=== PATIENT | female | born 1970 | race Caucasian/White ===

== ENCOUNTER 2018-08-15 05:36 | Day surgery (SDC) | payer OTHER ==
[2018-08-15] MEDS ORDERED: PROPOFOL 10 MG/ML VIAL IV ONE (05:37)
[2018-08-15] MEDS ORDERED: MIDAZOLAM HCL 2MG/2ML VIAL IV ONE (05:37)
[2018-08-15] MEDS ORDERED: DESFLURANE 240 ML BTL INH ONE (05:37)
[2018-08-15] MEDS ORDERED: LIDOCAINE 2% MDV (20MG/ML) 20ML VIAL IV ONE (05:37)
[2018-08-15] MEDS ORDERED: DEXAMETHASONE 4 MG/ML 1ML VIAL IVP ONE (05:37)
[2018-08-15] MEDS ORDERED: ONDANSETRON HCL IV 4 MG/2 ML VIAL IVP ONE (05:37)
[2018-08-15] MEDS ORDERED: FENTANYL PF 100MCG/2ML VIAL IV ONE (05:37)
[2018-08-15] MEDS ORDERED: CEFAZOLIN 2 Gram 2 GM/50 ML BAG IVPB ONE (05:37)
[2018-08-15] MEDS ORDERED: ACETAMINOPHEN 1,000 MG/100 ML BTL IV ONE (06:00)
[2018-08-15 06:12] LABS: HEMATOCRIT 44.1 % (35.0-47.0); HEMOGLOBIN 14.2 gm/dl (11.6-16.0)
[2018-08-15 06:13] LABS: URINE APPEARANCE SL CLOUDY; URINE BILIRUBIN NEGATIVE (NEGATIVE); URINE BLOOD NEGATIVE (NEGATIVE); URINE COLOR YELLOW; URINE GLUCOSE (UA) NEGATIVE (NEGATIVE); URINE KETONE NEGATIVE (NEGATIVE); URINE LEUKOCYTE ESTERASE NEGATIVE (NEGATIVE); URINE NITRITE NEGATIVE (NEGATIVE); URINE PROTEIN NEGATIVE (NEGATIVE); URINE UROBILINOGEN 0.2 E.U./dL (0.20 - 1.00)
[2018-08-15 06:25] LABS: BLOOD UREA NITROGEN 23 mg/dL (6-20); CREATININE 0.8 mg/dL (0.5-0.9); EST GLOMERULAR FILTRATION RATE > 60 mL/min; GLUCOSE,RANDOM 140 mg/dL (74-109)
--- NOTE | 2018-08-20 11:00 | Operative Note ---
DATE OF SURGERY: 08/15/2018 PREOPERATIVE DIAGNOSIS: Urgency, frequency, stress incontinence. POSTOPERATIVE DIAGNOSIS: Urgency, frequency, stress incontinence. OPERATION: Cystoscopy. PROCEDURE: General anesthesia. Lithotomy position. The patient was prepped and draped in sterile fashion. Cystoscopy was performed. The patient was noted to have a very mild grade 1 cystocele. Pérez endoscopy revealed no evidence of any foreign body, bladder stone/calculi, or infection. At the end of the procedure, bladder was drained. Pelvic examination was negative. Digital rectal examination revealed grade 1 rectocele. The patient tolerated procedure well. ADDENDUM: She would be a good candidate for a urethral sling. BELTRAN
== END 2018-08-15 09:02 | disposition home or self-care (01) ==
LOC: SUR 05:36
PROVIDERS: ATTEND Specialist
DX: R35.0 Frequency of micturition (principal); N39.46 Mixed incontinence; E11.9 Type 2 diabetes mellitus without complications; Z79.4 Long term (current) use of insulin; E78.00 Pure hypercholesterolemia, unspecified; K21.9 Gastro-esophageal reflux disease without esophagitis; G47.33 Obstructive sleep apnea (adult) (pediatric)
CPT/HCPCS: 80048; 81003; 85014; 85018; J2405